=== PATIENT | female | born 1950 | race Two or more races ===

== ENCOUNTER 2025-02-02 00:18 | Inpatient (IN) | payer MEDICARE, BC ==
[~2025-02-02] VITALS: Ht 165.1 cm; Wt 69.9 kg
[2025-02-02 01:17] LABS: PLATELET COUNT (AUTO) 237 K/uL (150-450); RED BLOOD CELL COUNT(AUTO) 4.87 MIL/uL (4.0-5.2); RED CELL DISTRIBUTION WIDTH 14.5 % (11.5-15.0); WHITE BLOOD COUNT (AUTO) 5.5 K/uL (4.3-11.0)
[2025-02-02] MEDS: IV LR 1000 ML 1,000 ML IV ONE (01:17)
[2025-02-02 01:27] LABS: CALCIUM, SERUM 8.8 mg/dL (8.5-10.1); CREATININE 0.9 mg/dL (0.6-1.3); SODIUM SERUM 142 mmol/L (136-145); UREA NITROGEN, BLOOD 19 mg/dL (7-18)
[2025-02-02 01:31] LABS: ASPARTATE AMINOTRANSFERASE 20 U/L (15-37); TOTAL PROTEIN, SERUM 6.3 g/dL (6.4-8.2)
[2025-02-02] MEDS ORDERED: ONDANSETRON HCL/PF 4 MG/2 ML VIAL IVP PRN (02:30)
[2025-02-02] MEDS ORDERED: TEMAZEPAM 15 MG CAPSULE PO PRN (02:30)
[2025-02-02] MEDS ORDERED: Z GUARD REMEDY 4 OZ OINT TP PRN (02:30)
[2025-02-02] MEDS ORDERED: MAGNESIUM HYDROXIDE 30 ML UDC PO PRN (02:30)
[2025-02-02] MEDS ORDERED: HYDROCODONE/APAP 5/325MG TABLET PO PRN (02:30)
[2025-02-02] MEDS ORDERED: ENOXAPARIN SODIUM 40 MG/0.4 ML DISP.SYRIN SQ SCH (02:30)
[2025-02-02] MEDS ORDERED: MAG HYDROX/AL HYDROX/SIMETH 30 ML UDC PO PRN (02:30)
[2025-02-02] MEDS ORDERED: ASPIRIN 325 MG TABLET ONE (03:08)
[2025-02-02] MEDS: ASPIRIN 81 MG TAB.CHEW PO ONE (03:23)
[2025-02-02] MEDS: ASPIRIN 325 MG TABLET PO SCH (03:32)
[2025-02-02] MEDS: IV NS 0.9% 1,000 ML IV PRN (03:42)
[2025-02-02] MEDS: ENOXAPARIN SODIUM 40 MG/0.4 ML DISP.SYRIN SQ SCH (03:54)
[2025-02-02 04:00] VITALS: BP 132/87; TEMP 97.7; O2SAT 96
[2025-02-02 04:36] VITALS: BP 132/87; TEMP 97.7; O2SAT 96
[2025-02-02] MEDS ORDERED: ROSU10TA2 PO (06:58)
[2025-02-02] MEDS ORDERED: MAGN500C16 PO (06:58)
[2025-02-02] MEDS ORDERED: METO25TA6 PO (06:58)
[2025-02-02] MEDS ORDERED: AMLO2.5T4 PO (06:58)
[2025-02-02 07:30] VITALS: BP 131/96; TEMP 97.5; O2SAT 99
[2025-02-02] MEDS ORDERED: FOLI0.4T6 PO (08:44)
[2025-02-02] MEDS ORDERED: VITAMIN K2 PO (08:44)
[2025-02-02] MEDS ORDERED: LEVO112T5 PO ×2 (08:44)
[2025-02-02] MEDS: PANTOPRAZOLE 40 MG TABLET.DR PO SCH (08:58)
[2025-02-02] MEDS: METOPROLOL TARTRATE 25 MG TABLET PO SCH (08:59)
[2025-02-02] MEDS: ASPIRIN 81 MG TAB.CHEW PO SCH (08:59)
[2025-02-02 09:43] LABS: LDL 75 mg/dL (0-99)
[2025-02-02] MEDS ORDERED: IOHEXOL-350 100 ML VIAL IV ONE (11:48)
[2025-02-02] MEDS ORDERED: IV NS 0.9% 250 ML IV ONE (11:48)
[2025-02-02] MEDS ORDERED: CT SWABBABLE VALVE TRANS SET 1 EA INFUS.SET MC ONE (11:48)
[2025-02-02] MEDS: METOPROLOL TARTRATE INJ 5 MG/5 ML AMPUL IVP PRN (12:15)
[2025-02-02] MEDS: NITROGLYCERIN 0.4 MG/TAB BOTTLE SL ONE (12:30)
[2025-02-02] MEDS: ENOXAPARIN SODIUM 60 MG/0.6 ML DISP.SYRIN SQ SCH (14:33)
[2025-02-02 16:00] VITALS: BP 127/89; TEMP 98.2; O2SAT 96
[2025-02-02] MEDS: ACETAMINOPHEN 325 MG TABLET PO PRN (16:27)
[2025-02-02 20:50] VITALS: BP 131/83; TEMP 98.1; O2SAT 96
[2025-02-02] MEDS: ENOXAPARIN SODIUM 80 MG/0.8 ML DISP.SYRIN SQ SCH (21:06)
[2025-02-02] MEDS: ATORVASTATIN 40 MG TABLET PO SCH (21:15)
[2025-02-03 01:02] VITALS: BP 115/79; TEMP 97.7; O2SAT 95
[2025-02-03 04:42] VITALS: BP 118/83; TEMP 97.5; O2SAT 97
[2025-02-03 06:02] LABS: PLATELET COUNT (AUTO) 259 K/uL (150-450); RED BLOOD CELL COUNT(AUTO) 5.43 MIL/uL (4.0-5.2); RED CELL DISTRIBUTION WIDTH 14.2 % (11.5-15.0); WHITE BLOOD COUNT (AUTO) 5.0 K/uL (4.3-11.0)
[2025-02-03 06:16] LABS: ASPARTATE AMINOTRANSFERASE 25.0 U/L (15-37); CALCIUM, SERUM 8.7 mg/dL (8.5-10.1); CREATININE 0.8 mg/dL (0.6-1.3); PHOSPHORUS 3.3 mg/dL (2.5-4.9); SODIUM SERUM 143.0 mmol/L (136-145); TOTAL PROTEIN, SERUM 6.7 g/dL (6.4-8.2); UREA NITROGEN, BLOOD 9.0 mg/dL (7-18)
[2025-02-03 06:30] LABS: LDL 81.0 mg/dL (0-99)
[2025-02-03] MEDS ORDERED: METO25TA3 PO (07:19)
[2025-02-03] MEDS ORDERED: ASPI-1420 PO (07:27)
[2025-02-03 07:50] LABS: APPEARANCE,URINE SLIGHTLY CLOUDY (CLEAR); BLOOD, URINE TRACE-INTA Ery/uL (NEGATIVE); LEUKOCYTE ESTERASE ,URINE 1+ (NEGATIVE); NITRITE, URINE POSITIVE (NEGATIVE); UGLUCOSE NEGATIVE (NEGATIVE)
[2025-02-03 08:12] VITALS: BP 138/88
[2025-02-03 08:14] LABS: ADD URINE CULTURE YES
== END 2025-02-03 10:02 | disposition home health service (06) | DRG 281 ==
LOC: ER 00:20 → TELE 02:54
PROVIDERS: ADMIT Internal Medicine; ATTEND Internal Medicine
DX: I16.0 Hypertensive urgency (principal); I51.81 Takotsubo syndrome; I21.A1 Myocardial infarction type 2; I10 Essential (primary) hypertension; E03.9 Hypothyroidism, unspecified; Z88.1 Allergy status to other antibiotic agents; Z88.2 Allergy status to sulfonamides; F41.9 Anxiety disorder, unspecified; Z79.890 Hormone replacement therapy; Z79.899 Other long term (current) drug therapy; R73.9 Hyperglycemia, unspecified; M41.9 Scoliosis, unspecified
CPT/HCPCS: 36415; 71045-TC; 75574; 80048-TC; 80053-TC; 80061-TC; 80076-TC; 81001; 83735-TC; 84100-TC; 84439-TC; 84443-TC; 84484-TC; 85025-TC; 87086-TC; 93307-TC; 97110-TC; 97116-TC; 97530-TC; 97535-TC; A4223; G0378; J1650; J3490; J7030; J7050; J7120; Q9967